=== PATIENT | male | born 1985 | race Caucasian/White ===

== ENCOUNTER → 2021-02-17 | Outpatient (CLI) | payer OTHER ==
--- NOTE | 2021-02-17 16:41 | KCIC ---
EXAM: MRI RIGHT ANKLE/HINDFOOT DATE: 02/17/2021 1:20 PM CLINICAL INDICATION: Reason: RIGHT ANKLE PAIN / Spl. Instructions: Prior rt ankle graft surgery 2014. / History: Lateral midfoot pain, sharp with certain movements. Rolled ankle 1 mth ago COMPARISON: None. TECHNIQUE: Multiplanar, multisequence MR imaging of the right ankle was performed without IV contrast . FINDINGS: Small ankle joint effusion. The medial and lateral flexor tendons, extensor tendons and Achilles tendon are intact about the ankl e joint without tenosynovitis. Plantar fascia intact without marginal osteitis or soft tissue swelling. Physiologic fluid at the ret rocalcaneal bursa. Ligaments: The superficial and deep fibers of the deltoid ligament complex is grossly intact. Lateral collateral stabilizing ligaments a grossly intact although mild thickening of the anterior ta lofibular ligament likely from old injury. Anterior and posterior tibiofibular ligaments are intact. Spring ligament is not well seen but grossly intact. Ligaments of the Sinus Tarsi are intact. Spaces/Places: Sinus Tarsi within normal limits, without mass lesion or edema pattern. Tarsal tunnel within normal limits, without mass lesion. Articular Cartilage/joint line/bone: OCD lesion lateral talar dome with offset between the bone fragment and remainder of the talus. Cysti c changes seen at the interface suggesting instability. Posterior and middle subtalar joint spaces are preserved. Small ankle joint effusion. There is no acute fracture. IMPRESSION: OCD lesion of the lateral talar dome with offset from the remainder of the talus and cystic change at the interface suggest unstable fragment. Moderate associated talar edema. Electronically signed by: Melecio Wu MD (02/17/2021 4:39 PM) [id number]
== END ==
LOC: KCIC MRI 12:30
PROVIDERS: ATTEND Family Medicine
DX: S99.911A Unspecified injury of right ankle, initial encounter (principal); M25.471 Effusion, right ankle; M93.28 Osteochondritis dissecans other site; X58.XXXA Exposure to other specified factors, initial encounter; Y93.89 Activity, other specified; Y92.89 Other specified places as the place of occurrence of the external cause; Y99.8 Other external cause status
CPT/HCPCS: 73721

== ENCOUNTER 2021-05-12 12:27 | Day surgery (SDC) | payer OTHER ==
[~2021-05-12] VITALS: Ht 213.4 cm; Wt 80.7 kg
[~2021-05-12 12:27] MED LIST: HYDROmorphone 2 MG/ML VIAL IVP PRN; IV RINGERS,LACTATED 1000ML 1,000 ML IV SCH; MORPHINE SULFATE 2 MG/ML INJ. IVP PRN; PROCHLORPERAZINE 10 MG/2 ML VIAL. IVP PRN; fentaNYL PF VIAL 100 MCG/2 ML VIAL IVP PRN
[2021-05-12 12:55] VITALS: BP 152/87
[2021-05-12] MEDS ORDERED: MIDAZOLAM HCL/PF 2 MG/2 ML VIAL. ONE (13:08)
[2021-05-12] MEDS ORDERED: PROPOFOL 10 MG/ML (20ML) VIAL. IV ONE (13:08)
[2021-05-12] MEDS ORDERED: fentaNYL PF VIAL 100 MCG/2 ML VIAL ONE (13:08)
[2021-05-12] MEDS ORDERED: BUPIVACAINE-EPI 0.25%-1:200000 MPF 30 ML VIAL. ONE (13:14)
[2021-05-12] MEDS ORDERED: BUPIVACAINE-EPI 0.25%-1:200000 MPF 30 ML VIAL. INJ ONE (14:29)
--- NOTE | 2021-05-12 14:32 | PDOC4 ---
OPERATIVE NOTE Date: Date: May 12, 2021 Pre-Op Diagnosis: Chondral lesion lateral talar dome right ankle Post-Op Diagnosis: Same Procedure Performed: Arthroscopy right ankle with microfracture following talar dome debridement chondroplasty Surgeon: Surgeon De Leon Anesthesia Type: General Blood Loss: 20 cc Specimans Obtained: None Findings: See dictation Complications: None REGINALD DE LEON Jr., DO May 12, 2021 14:32
[2021-05-12] MEDS ORDERED: TRAM50TA PO (14:37)
--- NOTE | 2021-05-12 14:41 | DISCH ---
DISCHARGE INSTRUCTIONS Condition on Discharge Condition on Discharge: Stable Activity After Discharge Activity Instructions for Disc: Avoid exertion Bathing Instructions: Shower-keep dressing dry Driving Instructions after Dis: Do not drive today Weight Bearing Status after Di: Touch down weight bearing Wound Incision Care Wound/Incision Care: Ice to area for comfort, Keep wound elevated Other wound/incision instructi: May change dressings postoperative day #3 replace with sterile Band-Aid misti Follow-Up Follow up with: 10 to 14 days REGINALD DE LEON Jr. DO May 12, 2021 14:41
--- NOTE | 2021-05-12 15:09 | OP ---
DATE OF SURGERY: 05/12/2021 PREOPERATIVE DIAGNOSIS: Chondral lesion, lateral talar dome, right ankle. POSTOPERATIVE DIAGNOSIS: Chondral lesion, lateral talar dome, right ankle. PROCEDURE: Right ankle arthroscopy with chondroplasty and microfracture. SURGEON: Luis Dacosta Jr, DO GEOPHYSICAL PROSPECTOR: Wyatt Dias. ANESTHESIA: General. COMPLICATIONS: None. ESTIMATED BLOOD LOSS: 20 mL. Standard dictation for first coat operator. DESCRIPTION OF PROCEDURE: The patient was taken to the operative suite, given a general anesthetic. Right lower extremity was placed in a knee durham and then the traction was placed on the ankle after this was prepped and draped. Anterolateral and anteromedial portals were established. Through the lateral side, this was injected with fluid and then, incision was made and this was noted to be a good portal. Synovectomy was completed about the entire right ankle. After this had been completed, this was more medial than anything as far as the synovitis. There was noted to be a chondral defect at approximately 20 degrees of plantarflexion along the lateral talar dome. This measured approximately 2.2-2.3 cm in length and then approximately 5 mm to 6 mm in width. This was very unstable laterally. Therefore, debridement was undertaken; however, this was not full thickness at this point. There was good overlying cartilage and there was an area which was more damaged of approximately a 7 mm region in the mid substance of that lesion. Therefore, this was microfractured using appropriate instrumentation. There was noted to be good bleeding from that area with decreased pressure in the joint itself. Therefore, no other abnormalities were noted, no loose bodies were noted throughout the ankle, no other significant abnormalities were noted. Therefore, this was thoroughly irrigated and suctioned dry. All instruments were then removed. Local was placed. Wounds were reapproximated. Sterile dressing was applied. The patient was then taken from the operative bed to the postoperative bed, taken to the PACU in stable condition. MAHESH DR: Shivam TID: [id number]
[2021-05-12] MEDS ORDERED: traMADol 50 MG TABLET PO ONE (15:30)
[2021-05-12 16:01] VITALS: BP 124/73
== END 2021-05-12 16:40 | disposition home or self-care (01) ==
LOC: SURG 12:27
PROVIDERS: ATTEND Orthopaedic Surgery
DX: M25.571 Pain in right ankle and joints of right foot (principal); M93.271 Osteochondritis dissecans, right ankle and joints of right foot; Z98.890 Other specified postprocedural states
CPT/HCPCS: 29891; A4930; J0690; J2250; J2704; J3010; J3490